=== PATIENT | male | born 1990 | race Caucasian/White ===

== ENCOUNTER 2024-02-12 10:46 | Emergency (ER) | payer SELFPAY ==
[2024-02-12 11:01] VITALS: BP 138/103; PULSE 93; RESP 17; TEMP 36.6; O2SAT 100; BMI 20.5
--- NOTE | 2024-02-12 11:09 | ED_ITS ---
HPI - Nausea/Vomiting/Diarrhea 2 General: Chief complaint: Nausea/Vomiting/Diarrhea Stated complaint: n/v, diarrhea, abd pain Time Seen by Provider: 02/12/24 10:49 Source: patient Mode of arrival: ambulatory Limitations: no limitations History of Present Illness: Patient is a 33-year-old male who presents to the ED today stating I think I drink too much last night . Patient states he is not a chronic/daily/heavy drinker but just wanted to have some fun yesterday evening. Family that accompanies him states he drank about 75% of a fifth of [place] by himself on an empty stomach. States he woke up this morning vomiting and states his stomach feels empty and sore. Denies hematemesis. Denies history of gastritis or pancreatitis. No change to bowel habits. MD elicited complaint: nausea, vomiting and abdominal pain Pertinent past history: alcohol abuse Onset (ago): hour(s) Associated nausea: Yes Associated abdominal pain: Yes Location of pain: Epigastric Context: alcohol abuse Associated symtoms: Reports nausea; Denies chest pain, dizziness, dysuria or headache(s) Review of Systems 2 Const: Denies: fever(s) Card: Denies: chest pain Resp: Denies: dyspnea GI: Reports: abdominal pain (states it feels empty and sore), nausea and vomiting; Denies: hematemesis or change in bowel habits : Denies: flank pain or dysuria Skin/Breast: Denies: rash Neuro: Denies: headache(s) or dizziness Physical Exam 2 Const: COMMON NORMALS: no acute distress, patient oriented x3, no limitations, alert and well nourished GENERAL APPEARANCE: cooperative NUTRITIONAL APPEARANCE: thin ORIENTATION/CONSCIOUSNESS: Yes awake, Yes oriented to person, Yes oriented to place and Yes oriented to time OTHER: nauseous appearing Eye: COMMON NORMALS: no scleral icterus Resp: COMMON NORMALS: normal respiratory effort and clear to auscultation bilaterally AUSCULTATION: clear to auscultation bilaterally Cardio: COMMON NORMALS: regular rate and regular rhythm RATE: regular rate RHYTHM: regular rhythm GI: COMMON NORMALS: Normal to inspection, nondistended, normoactive bowel sounds present, Soft to palpation, non-tender, No hepatosplenomegaly present and no masses INSPECTION: Yes normal to inspection PALPATION: Yes Soft to palpation and Yes No hepatosplenomegaly present Neuro: COMMON NORMALS: patient oriented x3 SENSORIUM/ORIENTATION: Yes alert, Yes oriented to person, Yes oriented to place and Yes oriented to time Course 2 Vital Signs: Vital signs: Vital Signs Temperature 97.8 F 02/12/24 11:01 Pulse Rate 98 02/12/24 12:13 Respiratory Rate 17 02/12/24 11:01 Blood Pressure 150/86 02/12/24 12:13 Pulse Oximetry 98 02/12/24 12:13 Oxygen Delivery Me thod Room Air 02/12/24 11:01 MDM - Nausea/Vomiting/Diarrhea Medical Decision Making Patient here with N/V following a heavy night of drinking/etoh. Vitals are stable. He was given a liter of fluids and IV Zofran here and feels reportedly much improved. He has ate and drink here without any vomiting. Patient feels comfortable going home. Lab work shows a white count of 15.1 most likely reactive from vomiting all night/morning. Chemistry consistent with a mild alcohol induced metabolic acidosis. US consistent with some dehydration. Recommend continuing to push fluids the remainder of the day. Return precautions discussed. Medical Records I reviewed the patient's medical records. Lab Data I reviewed the patient's lab results. 02/12/24 11:25 02/12/24 11:25 Laboratory Results WBC 15.13 10^3/uL (3.29-11.43) H 02/12/24 11:25 RBC 5.74 10^6/uL (3.85-5.65) H 02/12/24 11:25 Hgb 17.60 g/dL (11.27-16.99) H 02/12/24 11:25 Hct 48.3 % (37-53) 02/12/24 11:25 MCV 84.1 fl (82-101) 02/12/24 11:25 MCH 30.7 pg (27-33) 02/12/24 11:25 MCHC 36.4 g/dL (30-55) 02/12/24 11:25 RDW 12.7 % (12.1-15.1) 02/12/24 11:25 Plt Count 274 10^3/cmm (157-399) 02/12/24 11:25 MPV 12.3 fL (7.4-10.4) H 02/12/24 11:25 Neut % (Auto) 87.3 % 02/12/24 11:25 Lymph % (Auto) 8.1 % 02/12/24 11:25 Chase % (Auto) 3.8 % 02/12/24 11:25 Eos % (Auto) 0.2 % 02/12/24 11:25 Baso % (Auto) 0.1 % 02/12/24 11:25 Neut # (Auto) 13.20 10^3/uL (1.8-7.7) H 02/12/24 11:25 Lymph # (Auto) 1.2 10^3/uL (0.8-4.8) 02/12/24 11:25 Chase # (Auto) 0.6 10^3/uL (0.2-0.9) 02/12/24 11:25 Eos # (Auto) 0.0 10^3/uL (0.0-0.8) 02/12/24 11:25 Baso # (Auto) 0.0 10^3/uL (0.0-0.1) 02/12/24 11:25 Nucleated RBC % (auto) 0 % 02/12/24 11:25 Nucleated RBCs # 0.0 /100WBC 02/12/24 11:25 Sodium 138 mmol/L (136-145) 02/12/24 11:25 Potassium 4.7 mmol/L (3.5-5.1) 02/12/24 11:25 Chloride 98 mmol/L (98-107) 02/12/24 11:25 Carbon Dioxide 19 mmol/L (22-29) L 02/12/24 11:25 Anion Gap 25.7 (5-19) H 02/12/24 11:25 BUN 20 mg/dL (6-20) 02/12/24 11:25 Creatinine 0.8 mg/dL (0.7-1.2) 02/12/24 11:25 GFR Calculation 111.3 mL/min (90-130) 02/12/24 11:25 Glucose 99 mg/dL (65-115) 02/12/24 11:25 Calculated Osmolality 289 mOsm/kg (285-295) 02/12/24 11:25 Calcium 9.9 mg/dL (8.5-10.5) 02/12/24 11:25 Total Bilirubin 0.8 mg/dL (0.15-1.2) 02/12/24 11:25 AST 37 U/L (0-40) 02/12/24 11:25 ALT 45 U/L (0-41) H 02/12/24 11:25 Alkaline Phosphatase 154 U/L (40-130) H 02/12/24 11:25 Total Protein 8.1 g/dL (6.6-8.7) 02/12/24 11:25 Albumin 5.4 g/dL (3.5-5.2) H 02/12/24 11:25 Globulin 2.7 g/dL (1.3-4.6) 02/12/24 11:25 Lipase 12 U/L (13-60) L 02/12/24 11:25 Urine Color Dark yellow (Yellow) 02/12/24 11:45 Urine Appearance Clear (CLEAR) 02/12/24 11:45 Urine pH 5 (5-7) 02/12/24 11:45 Ur Specific [place] 1.030 (1.005-1.030) 02/12/24 11:45 Urine Protein Neg (Negative) 02/12/24 11:45 Urine Glucose (UA) Norm (Normal) 02/12/24 11:45 Urine Ketones 3+ (Negative) H 02/12/24 11:45 Urine Blood 2+ (Negative) H 02/12/24 11:45 Urine Nitrate Negative (Negative) 02/12/24 11:45 Urine Bilirubin Neg (Negative) 02/12/24 11:45 Urine Urobilinogen Norm mg/dL (Negative) 02/12/24 11:45 Ur Leukocyte Esterase Negative (Negative) 02/12/24 11:45 Urine RBC 0-4 /hpf (0-2) H 02/12/24 11:45 Urine WBC Rare /hpf (0-5) 02/12/24 11:45 Ur Squamous Epith Cells Rare /hpf (0-5) 02/12/24 11:45 Ur Transition Epith Cell 0-4 /hpf 02/12/24 11:45 Amorphous Sediment Not Reportable 02/12/24 11:45 Urine Bacteria Trace /hpf (NONE) 02/12/24 11:45 Urine Mucus 3+ /hpf 02/12/24 11:45 Ur Oval Fat Bodies Rare /hpf 02/12/24 11:45 No radiology studies performed this visit Discharge Plan Discharge Patient Disposition: Home Clinical Impression: Toxic effect of alcohol Qualifiers: Encounter type: initial encounter Injury intent: accidental or unintentional Q ualified Code(s): T51.91XA - Toxic effect of unspecified alcohol, accidental (unintentional), initial encounter Condition: Stable Prescriptions: New ondansetron 4 mg tablet,disintegrating 4 mg PO Q8H PRN (Reason: nausea and vomiting) Qty: 6 0RF No Action Tylenol Ex Str Rapid Release 500 mg Tablet 1,000 mg PO Q6H PRN (Reason: Pain) Discharge Orders: Discharge ED (Routine); Ordered 02/12/24 Ordered By: Angie Chen Coding Level of Care Code ED Needle Punch Operator for Moody Siddiqui
--- NOTE | 2024-02-12 11:17 | PC.PHAR ---
pt states he takes no prescription medications-
[2024-02-12] MEDS: sodium chloride 0.9% 1,000 ML 999 ML IV (11:27)
[2024-02-12] MEDS: ondansetron 2 mg/ML SDV 2 mL 4 MG IVP (11:27)
[2024-02-12 11:33] LABS: Basophils % 0.1 %; Eosinophils % 0.2 %; Hematocrit 48.3 % (37-53); Lymphocytes # 1.2 10^3/uL (0.8-4.8); Lymphocytes % 8.1 %; Mean Corpuscular HGB Conc 36.4 g/dL (30-55); Mean Corpuscular Hemoglobin 30.7 pg (27-33); Mean Corpuscular Volume 84.1 fl (82-101); Mean Platelet Volume 12.3 fL (7.4-10.4); Monocytes # 0.6 10^3/uL (0.2-0.9); Monocytes % 3.8 %; Neutrophils % 87.3 %; Nucleated Red Blood Cells % 0 %; Platelet Count 274 10^3/cmm (157-399); Red Blood Count 5.74 10^6/uL (3.85-5.65); Red Cell Distribution Width 12.7 % (12.1-15.1); White Blood Count 15.13 10^3/uL (3.29-11.43)
[2024-02-12 11:54] LABS: Alanine Aminotransferase 45 U/L (0-41); Albumin Level 5.4 g/dL (3.5-5.2); Alkaline Phosphatase 154 U/L (40-130); Anion Gap 25.7 (5-19); Aspartate Amino Transferase 37 U/L (0-40); Blood Urea Nitrogen 20 mg/dL (6-20); Calcium 9.9 mg/dL (8.5-10.5); Carbon Dioxide 19 mmol/L (22-29); Chloride 98 mmol/L (98-107); Creatinine Clr Calc Pharmacy 121.7385; Globulin 2.7 g/dL (1.3-4.6); Glomerular Filtration Rate 111.3 mL/min (90-130); Glucose 99 mg/dL (65-115); Lipase 12 U/L (13-60); Osmolality Calculated 289 mOsm/kg (285-295); Potassium 4.7 mmol/L (3.5-5.1); Sodium 138 mmol/L (136-145); Total Bilirubin 0.8 mg/dL (0.15-1.2); Total Protein 8.1 g/dL (6.6-8.7)
[2024-02-12 12:01] LABS: Add Urine Microscopic? YES; Bilirubin Urine Neg (Negative); Blood Urine 2+ (Negative); Glucose Urine UA Norm (Normal); Ketones Urine 3+ (Negative); Leukocyte Esterase Urine Negative (Negative); Nitrate Urine Negative (Negative); Protein Urine Neg (Negative); Urine Appearance Clear (CLEAR); Urine Color Dark Yellow (Yellow); Urobilinogen Urine Norm (Negative); pH Urine 5 (5-7)
[2024-02-12 12:06] LABS: RBC Urine 0-4 /hpf (0-2); Squamous Epithelial Cell Urine RARE /hpf (0-5); Transitional Epi Cells Urine 0-4 /hpf; WBC Urine RARE /hpf (0-5)
[2024-02-12 12:07] LABS: Add Urine Culture? No; Bacteria Urine TRACE /hpf; Mucus Urine 3+ /hpf; Oval Fat Bodies Urine RARE /hpf
[2024-02-12 12:13] VITALS: BP 150/86; PULSE 98; O2SAT 98
[2024-02-12 12:26] VITALS: BP 150/86; PULSE 98; RESP 17; TEMP 36.6; O2SAT 98
== END 2024-02-12 12:32 | disposition home or self-care (01) ==
PROVIDERS: Emergency Provider Physician Assistant
DX: T51.0X1A Toxic effect of ethanol, accidental (unintentional), initial encounter (principal)
CPT/HCPCS: 36415; 80053; 81001; 83690; 85025; 96374; 99284; J2405; J7030